=== PATIENT | female | born 1970 | race American Indian/Alaskan Native ===

== ENCOUNTER 2017-04-11 11:55 | Emergency (ER) | payer SELFPAY ==
[2017-04-11 12:51] LABS: Basophils % (Auto) 0.6 % (0.0-1.8); Eosinophils % (Auto) 1.3 % (0.0-4.3); Hematocrit 40.7 % (30.3-42.9); Hemoglobin 13.5 gm/dl (10.1-14.3); Mean Corpuscular HGB Conc 33 % (30-34); Mean Corpuscular Hemoglobin 31 pg (28-32); Mean Corpuscular Volume 93 fl (79-97); Platelet Count 209 K/mm3 (140-440); Red Blood Count 4.38 M/mm3 (3.65-5.03); Red Cell Distribution Width 13.9 % (13.2-15.2); White Blood Count 8.2 K/mm3 (4.5-11.0)
[2017-04-11 13:18] LABS: Alanine Aminotransferase 8 units/L (7-56); Albumin 4.2 g/dL (3.9-5); Albumin/Globulin Ratio 1.6 %; Alkaline Phosphatase 56 units/L (35-129); Anion Gap 16 mmol/L; BUN/Creatinine Ratio 13.75; Blood Urea Nitrogen 11 mg/dL (7-17); Calcium 8.9 mg/dL (8.4-10.2); Carbon Dioxide 25 mmol/L (22-30); Chloride 103.5 mmol/L (98-107); Glucose 117 mg/dL (65-100); Potassium 3.7 mmol/L (3.6-5.0); Sodium 141 mmol/L (137-145); Total Protein 6.9 g/dL (6.3-8.2)
[2017-04-11 13:32] LABS: Bacteria,Urine 1+ /HPF (Negative); Bilirubin,Urine NEG (Negative); Blood,Urine SM (Negative); Ketones,Urine NEG (Negative); Leukocyte Esterase,Urine LG (Negative); Mucus,Urine 1+ /HPF; Nitrite,Urine NEG (Negative); Urobilinogen,Urine < 2.0 mg/dL (<2.0)
[2017-04-11 14:11] VITALS: BP 110/60
[2017-04-11] MEDS ORDERED: ZITHROMAX PO ONE (15:10)
[2017-04-11] MEDS ORDERED: XYLOCAINE 1% MPF 5 mL INFILTRATI ONE (15:10)
[2017-04-11] MEDS ORDERED: FLAGYL PO ONE (15:10)
[2017-04-11] MEDS ORDERED: ROCEPHIN IM ONE (15:10)
[2017-04-11] MEDS ORDERED: TYLENOL #3 PO ONE (15:11)
[2017-04-11] MEDS ORDERED: BENADRYL PO ONE (15:11)
--- NOTE | 2017-04-11 15:17 | Emergency Department Report ---
HPI - General Chief Complaint: Vaginal Bleeding Time Seen by Provider: 04/11/17 13:45 - HPI HPI: The patient is a 46 yo female whom presents for evaluation of abdominal pain. The patient reports abdominal pain on and off for the past 3 weeks, constant for the past one day, 10/10 in severity, crampy in quality, concentrated to midline lower abdomen. She also reports associated foul-smelling white and yellow vaginal discharge and unprotected sexual intercourse. The patient denies fever, chills, night sweats, diarrhea, blood in the stool, dark tarry stool, dysuria, hematuria, flank pain, inability to pass flatus. ED Past Medical Hx - Past Medical History Previous Medical History?: Yes Additional medical history: Poss miscarriage 03-21-2017 - Surgical History Past Surgical History?: Yes Additional Surgical History: 08-27-2010 - Social History Smoking Status: Never Smoker Substance Use Type: Non Opiate Pain - Medications Home Medications: Home Medications Medication Instructions Recorded Confirmed Last Taken Type Aspirin [Adult Low Dose Aspirin EC] 81 mg PO DAILY #30 tablet. 10/29/15 Unknown Rx traMADol [Ultram] 50 mg PO Q4HR PRN #20 tablet 05/26/16 Unknown Rx Acetaminophen/Codeine [Tylenol #3] 1 tab PO Q6H PRN #12 tab 04/11/17 Unknown Rx Cephalexin [Keflex] 500 mg PO TID #15 cap 04/11/17 Unknown Rx Fluconazole [Diflucan TAB] 150 mg PO ONCE #1 tablet 04/11/17 Unknown Rx metroNIDAZOLE [Flagyl] 500 mg PO Q12HR #14 tab 04/11/17 Unknown Rx ED Review of Systems ROS: Stated complaint: DISCHARGE W/STOMACH PAIN Other details as noted in HPI Constitutional: denies: fever ENT: denies: throat or neck pain Respiratory: denies: cough, shortness of breath Cardiovascular: denies: chest pain Endocrine: denies unexplained weight loss or gain Gastrointestinal: reports abdominal pain, nausea Genitourinary: reports VD denies: dysuria Musculoskeletal: denies: leg swelling Skin: denies: rash Neurological: denies: headache Hematological/Lymphatic: denies: easy bleeding or easy bruising Psych: denies sadness or hopelessness Physical Exam - Physical Exam Vital Signs: Vital Signs 04/11/17 04/11/17 12:00 14:05 Temperature 98.5 F Pulse Rate 86 71 Respiratory 18 16 Rate Blood Pressure 120/79 Blood Pressure 110/60 [Right] O2 Sat by Pulse 97 Oximetry Physical Exam: General: well-nourished, well-developed, no acute distress Head: Normocephalic, atraumatic Eyes: normal sclera ENT: Mucous membranes are pink and moist Neck: trachea midline, neck supple, No neck stiffness, no cervical adenopathy Respiratory: Breath sounds equal bilaterally, no wheezing, rales, or rhonchi Cardio: S1 and S2 present, no murmurs, rubs, gallops, capillary refill is brisk Abdomen: Normoactive bowel sounds, soft abdomen, periumbilical and suprapubic abdominal tenderness to palpation present, no rigidity, no guarding or rebound tenderness Musc: No pitting edema Skin: No rash Neuro: no facial drooping, normal speech Psych: Normal affect ED Course Vital Signs 04/11/17 04/11/17 12:00 14:05 Temperature 98.5 F Pulse Rate 86 71 Respiratory 18 16 Rate Blood Pressure 120/79 Blood Pressure 110/60 [Right] O2 Sat by Pulse 97 Oximetry ED Medical Decision Making - Lab Data Result diagrams: 04/11/17 12:15 04/11/17 12:15 - Medical Decision Making The patient was seen and examined by myself. The patient is placed on a satellite project site monitor and continuous pulse ox. On initial evaluation, the patient was found to be in no distress. Evaluation orders were placed. The patient was given a tablet of Tylenol 3 for pain. The patient refused pelvic exam but requests treatment of vaginitis/cervicitis. Lab results reveal large positive leukocyte esterase, elevated urine WBC, and positive bacteria on urinalysis, and otherwise labs are nonrevealing including negative serum test and nml WBC. The patient is given antibiotics for treatment of cervicitis and UTI. The patient was reevaluated and reported that their symptoms were markedly improved. The patient is stable for discharge with outpatient follow-up. The patient is given follow-up and return instructions. The patient expressed understanding and agreed with the plan. The patient is discharged in stable condition. Critical care attestation.: If time is entered above; I have spent that time in minutes in the direct care of this critically ill patient, excluding procedure time. ED Disposition Clinical Impression: Acute suprapubic pain, Abdominal pain, acute, periumbilical, Acute UTI ( urinary tract infection) Vaginitis Qualifiers: Chronicity: acute Qualified Code(s): N76.0 - Acute vaginitis Disposition: DISCHARGED TO HOME OR SELFCARE Is pt being admited?: No Does the pt Need Aspirin: No Condition: Stable Instructions: Bacterial Vaginosis (ED), Chlamydia Infection (ED), Sexually Transmitted Diseases (ED), Safe Sex (ED), Trichomoniasis (ED), Vulvovaginal Candidiasis (ED), Vaginitis (ED) Prescriptions: Acetaminophen/Codeine [Tylenol #3] 1 tab PO Q6H PRN #12 tab PRN Reason: Pain Cephalexin [Keflex] 500 mg PO TID #15 cap Fluconazole [Diflucan TAB] 150 mg PO ONCE #1 tablet metroNIDAZOLE [Flagyl] 500 mg PO Q12HR #14 tab Referrals: [facility] [Provider Group] - 3-5 Days ROBYN GOODRICH MD [Staff Physician] - 3-5 Days Time of Disposition: 15:12
== END 2017-04-11 16:34 | disposition home or self-care (01) ==
LOC: ED 11:55
DX: N76.0 Acute vaginitis (principal); R10.33 Periumbilical pain; N39.0 Urinary tract infection, site not specified; R10.30 Lower abdominal pain, unspecified; Z88.8 Allergy status to other drugs, medicaments and biological substances
CPT/HCPCS: 36415; 80053; 81001; 84702; 85025; 86850; 86900; 86901; 96372; 99284; J0696